=== PATIENT | female | born 1965 | race Caucasian/White ===

== ENCOUNTER 2017-03-03 00:07 | Emergency (ER) | payer OTHER ==
--- NOTE | 2017-03-04 01:33 | ED ORDER SUMMARY ---
..... Patient: SHARRI VILLEDA OrderSheet [facility] VisitID: [id number] [address] [place] [address] 52y, F Registration Date/Time: 03/04/2017 ORDER SHEET Weight: 51.7 kg (stated) Allergies: Penicillin, Sulfa Antibiotics, Compazine GENERAL ORDERS: MEDICATION ORDERS: Ativan IM 1 mg (HIGH ALERT MEDICATION, NOW) (00:24 03/04/2017 Edu Epperson) (0:33 Syeda R.N.) Zofran ODT PO 4 mg (NOW) (00:24 03/04/2017 Edu Epperson) (0:33 Syeda R.N.) IV FLUIDS: ORDER SHEET NOTES: [Electronically signed by Lamont Ewing R.N. (01:43 03/04/2017)] [Electronically signed by Robert Gannon Dr. (02:51 03/04/2017)] [Electronically locked/signed by Lamont Ewing R.N. (:43 03/04/2017)]
--- NOTE | 2017-03-04 01:33 | ED CLINICAL REPORT ---
Clinical Report - Physicians/Mid Levels [facility] [address] [place] [address] 03/04/2017 0:08 Patient: SHARRI VILLEDA Time Seen: 00:17; initial patient contact. Arrived- By private vehicle. Historian- patient. HISTORY OF PRESENT ILLNESS Chief Complaint: ANXIOUS. This started last night. The patient is non-compliant with medication- the last dose was 2 days ago (Ran out of meds 2 days ago, thought she could make it until Saturday when she sees her PCP.). Has been eating or not been depressed. Has not been sleeping. She has had anxiety. No anger, unusual behavior, paranoia, delusions or suicidal thoughts. No self-injury inflicted or hallucinations. The symptoms are described as moderate. No injury is present. Similar symptoms previously: Recent medical care: Not recently seen/assessed. REVIEW OF SYSTEMS No headache, chest pain, palpitations, abdominal pain or vomiting. She has had nausea. All systems otherwise negative, except as recorded above. PAST HISTORY ( Mood Disorder. Migraine Headache. Anxiety Reaction. SURGERIES: Tonsillectomy. Urethral Stretching.). SOCIAL HISTORY Never smoker. Occasional alcohol use. No drug use. ADDITIONAL NOTES The nursing notes have been reviewed. PHYSICAL EXAM Vital Signs: 03/04/2017 01:42 BP: 119/62. HR: 73. RR: 16. O2 saturation: 100%. Temp: 97.8 F. Pain level now: 0/10. Have been reviewed as normal. Appearance: Alert. No acute distress. Appearance is normal. CVS: Normal heart rate and rhythm. Heart sounds normal. Respiratory: No respiratory distress. Breath sounds normal. Psych / Neuro: Oriented X 3. Mood and affect normal. Speech normal. Cognition normal. Thought process and content normal. Insight and judgement normal. PROGRESS AND PROCEDURES Disposition: Discharged home in good and improved condition. Condition: good. CLINICAL IMPRESSION Anxiety reaction. INSTRUCTIONS Your Current Medications: CONTINUE TAKING THE FOLLOWING MEDICATIONS: ClonazePAM Oral : Tablet 0.5 mg, 1 tablet 2x a day. Gabapentin Oral : 1500 mg daily. Nortriptyline HCl Oral : 200 mg at bedtime. Follow-up: Follow up with your doctor today as scheduled. (Electronically signed by Robert Gannon Dr. 03/04/2017 2:51)
--- NOTE | 2017-03-04 01:33 | ED NURSING NOTES ---
Clinical Report - Nurses [facility] [address] [place] [address] 03/04/2017 0:08 Patient: CARIDAD VILLEDA TRIAGE Triage time 00:08. Acuity: LEVEL 4. Chief Complaint: ANXIETY and MEDICATION REFILL (Has been out of anxiety medications since Saturday. Experiencing a lot of anxiety and fear. [facility], treated for migraine, gave prescription for Zofran. She says her N, V still uncontrolled. States she is in the middle of a move which is causing her to be anxious. She is currently staying at a hotel. Last year, her of metastatic brain cancer and best friend earlier this year of [place]; dog recently dx of cancer; eldest cat "at 's door."). Alert. No acute distress. SEPSIS SCREEN: Sepsis Screen: negative. Negative (no infection suspected/documented). --00:15 Lamont Ewing R.N. 00:08 03/04/17. BP: 138/91 (regular adult cuff) taken on the left arm, via an automated monitor, while sitting. HR: 80 (normal rate). RR: 16 (regular, unlabored and normal). O2 saturation: 100% on room air. Temp: 98.1 F (oral). Pain level now: 12/14. --00:15 Lamont Ewing R.N. Weight: 51.7 kg stated. Height/Length: 63 inches Per Patient. BMI: 20.2. --00:09 Lamont Ewing R.N. Medications ClonazePAM Oral (Tablet 0.5 mg) 1 tablet, 2x a day. --00:09 Lamont Ewing R.N. Gabapentin Oral 1500 mg, daily. --00:09 Lamont Ewing R.N. Nortriptyline HCl Oral 200 mg, at bedtime. --00:09 Lamont Ewing R.N. The following entry was struck and corrected by Lamont Ewing R.N., 00:16 (03/04/17) Reason for correction - other(correction). <<STRICKEN ENTRY-- Nortriptyline HCl Oral. --00:09 Lamont Ewing R.N. --END STRIKE>> The following entry was struck and corrected by Lamont Ewing R.N., 00:15 (03/04/17) Reason for correction - other(correction). <<STRICKEN ENTRY-- Gabapentin Oral. --00:09 Lamont Ewing R.N. --END STRIKE>> The following entry was struck and corrected by Lamont Ewing R.N., 00:15 (03/04/17) Reason for correction - other(correction). <<STRICKEN ENTRY-- ClonazePAM Oral. --00:09 Lamont Ewing R.N. --END STRIKE>>. Medication/allergy information source: the patient. --00:15 Lamont Ewing R.N. Allergies Penicillin. --00:08 Lamont Ewing R.N. Sulfa Antibiotics. --00:08 Lamont Ewing R.N. Compazine. --00:09 Lamont Ewing R.N. History Arrived by EMS. Historian: patient. Unaccompanied. Onset. (about 2 - 3 days ago). She has had vomiting (Started Saturday morning.). SOCIAL HX: Never smoker. Occasional alcohol use. (1-3 drinks/week). No drug use. She has not traveled outside the [place] The patient was not exposed to MRSA. No infectious disease exposure. ABUSE ASSESSMENT: Abuse assessment: The patient was asked "Do you feel safe in your home?" and "Has anyone hurt you or threatened to hurt you?". No report of abuse. FALL RISK ASSESSMENT: Fall risk assessment completed. No fall risk identified. NUTRITIONAL RISK ASSESSMENT: The nutritional risk assessment revealed no deficiencies. LEARNING NEEDS ASSESSMENT: The learning needs assessment revealed no barriers. FUNCTIONAL ASSESSMENT: Functional assessment performed: wears glasses- this visual impairment is an ongoing problem. SKIN INTEGRITY ASSESSMENT: Skin integrity risk assessment completed. No skin integrity risk identified. --00:15 Lamont Ewing R.N. PROBLEMS: Mood Disorder. Migraine Headache. Anxiety Reaction. --00:09 Lamont Ewing R.N. ADDITIONAL SURGERIES: Tonsillectomy. Urethral Stretching. --00: Lamont Ewing R.N. Assessment GENERAL / NEURO / PSYCH: Alert. Oriented X 4. Appears anxious. [place] Coma Scale: 15- eyes open spontaneously (4); best verbal response- oriented x 4 (5); best motor response- obeys commands (6). Patient appears calm and cooperative. RESPIRATORY: No respiratory distress. Respirations not labored. SKIN: Skin is warm and dry. --00:15 Lamont Ewing R.N. Interventions ID band on patient. To treatment room. --00:15 Lamont Ewing R.N. PHYSICAL ASSESSMENT To room via stretcher. ( Ran out of meds on Saturday, has appointment tomorrow, 03/04/17 at 9:30 Nelli Mckinley at [facility]. Thought she could get through weekend.). GENERAL / NEURO / PSYCH: Alert. Oriented X 4. Appears in no acute distress. Speech within normal limits. Affect appears normal. Patient appears calm and cooperative. Good eye contact. Patient appears well-nourished and neat and clean. ( Ringing in ears). HEENT: Pupils equal, round and reactive to light. RESPIRATORY: No respiratory distress. Respirations not labored. Breath sounds within normal limits. CVS: Normal sinus rhythm noted. Pulses: right radial 2+ and left radial 2+. Capillary refill less than 2 seconds and seconds. SKIN: Skin intact. Skin is warm and dry. Skin color is within normal limits. --00:17 Lamont Ewing R.N. NURSING PROGRESS NOTES 00:15 03/04/17. The initial plan of care for this patient has been created This plan of care was discussed with the patient. Reassurance given to the patient. Two patient identifiers checked. Call light placed in reach. Side rails up x 1. Bed placed in lowest position. Brakes of bed on. Patient ready for evaluation- ED physician notified. --00:15 Lamont Ewing R.N. 00:33 03/04/2017 Ativan (LORazepam) IM 1 mg given. Given in the left ventral gluteus. Allergies verified, confirmed 5 rights and sedative warning given to the patient. --00:33 Lamont Ewing R.N. 00:33 03/04/2017 Zofran ODT (Ondansetron) PO Oral Disintegrating Tablets 4 mg given. Allergies verified and confirmed 5 rights. --00:33 Lamont Ewing R.N. ( PO challenge initiated, pt given Gatorade.). --00:34 Lamont Ewing R.N. 01:04 03/04/2017 Zofran ODT PO Response: no adverse reaction pain is improving. Symptoms have improved the patient feels better. --01:04 Lamont Ewing R.N. 01:03/04/2017 Ativan IM Response: no adverse reaction symptoms have improved the patient feels better. --01:05 Lamont Ewing R.N. Reassessment after medication administered. She has had no adverse reaction. Overall patient status is improved- she states feels better. GENERAL / NEURO / PSYCH: Alert. Oriented X 4. Patient appears calm and cooperative. Affect appears normal. RESPIRATORY: No respiratory distress. SKIN: Skin is warm and dry. Skin color within normal limits. --01:05 Lamont Ewing R.N. ( Tolerating Gatorade. No N or V.). --01:05 Lamont Ewing R.N. DISPOSITION / DISCHARGE Departure time: 0140. Condition at departure: stable. The goals identified in the patient's plan of care were met. No learning barriers present. Discharge instructions provided and reviewed with the patient. Patient verbalized understanding. Written instructions provided in Slovenian. ( Caridad verbalizes understanding of all d/c instructions including need to f/u with PCP tomorrow as scheduled. She has no questions and voices no concerns at this time.). The patient was discharged by the physician. She was discharged home and unaccompanied at time of discharge. She left the Emergency Department ambulatory and via private vehicle. Patient driving. SHONDA COMA SCORE: [place] Coma Scale: 15- eyes open spontaneously (4); best verbal response- oriented x 4 (5); best motor response- obeys commands (6). --01:43 Lamont Ewing R.N. 01:42 03/04/17. BP: 119/62 (regular adult cuff) taken on the left arm, via an automated monitor, while sitting. HR: 73 (normal rate). RR: 16 (regular, unlabored and normal). O2 saturation: 100% on room air. Temp: 97.8 F (oral). Pain level now: 0/10. --01:43 Lamont Ewing R.N. Locked/Released at 03/04/2017 1:43 by Lamont Ewing R.N.
--- NOTE | 2017-03-04 01:33 | ED CLINICAL REPORT ---
Clinical Report - Physicians/Mid Levels [facility] [address] [place] [address] 03/04/2017 0:08 Patient: SHARRI VILLEDA Time Seen: 00:17; initial patient contact. Arrived- By private vehicle. Historian- patient. HISTORY OF PRESENT ILLNESS Chief Complaint: ANXIOUS. This started last night. The patient is non-compliant with medication- the last dose was 2 days ago (Ran out of meds 2 days ago, thought she could make it until Saturday when she sees her PCP.). Has been eating or not been depressed. Has not been sleeping. She has had anxiety. No anger, unusual behavior, paranoia, delusions or suicidal thoughts. No self-injury inflicted or hallucinations. The symptoms are described as moderate. No injury is present. Similar symptoms previously: Recent medical care: Not recently seen/assessed. REVIEW OF SYSTEMS No headache, chest pain, palpitations, abdominal pain or vomiting. She has had nausea. All systems otherwise negative, except as recorded above. PAST HISTORY ( Mood Disorder. Migraine Headache. Anxiety Reaction. SURGERIES: Tonsillectomy. Urethral Stretching.). SOCIAL HISTORY Never smoker. Occasional alcohol use. No drug use. ADDITIONAL NOTES The nursing notes have been reviewed. PHYSICAL EXAM Vital Signs: 03/04/2017 01:42 BP: 119/62. HR: 73. RR: 16. O2 saturation: 100%. Temp: 97.8 F. Pain level now: 0/10. Have been reviewed as normal. Appearance: Alert. No acute distress. Appearance is normal. CVS: Normal heart rate and rhythm. Heart sounds normal. Respiratory: No respiratory distress. Breath sounds normal. Psych / Neuro: Oriented X 3. Mood and affect normal. Speech normal. Cognition normal. Thought process and content normal. Insight and judgement normal. PROGRESS AND PROCEDURES Disposition: Discharged home in good and improved condition. Condition: good. CLINICAL IMPRESSION Anxiety reaction. INSTRUCTIONS Your Current Medications: CONTINUE TAKING THE FOLLOWING MEDICATIONS: ClonazePAM Oral : Tablet 0.5 mg, 1 tablet 2x a day. Gabapentin Oral : 1500 mg daily. Nortriptyline HCl Oral : 200 mg at bedtime. Follow-up: Follow up with your doctor today as scheduled. (Electronically signed by Robert Gannon Dr. 03/04/2017 2:51)
--- NOTE | 2017-03-04 01:33 | ED ORDER SUMMARY ---
..... Patient: SHARRI VILLEDA OrderSheet [facility] VisitID: [id number] [address] [place] [address] 52y, F Registration Date/Time: 03/04/2017 ORDER SHEET Weight: 51.7 kg (stated) Allergies: Penicillin, Sulfa Antibiotics, Compazine GENERAL ORDERS: MEDICATION ORDERS: Ativan IM 1 mg (HIGH ALERT MEDICATION, NOW) (00:24 03/04/2017 Edu Epperson) (0:33 Syeda R.N.) Zofran ODT PO 4 mg (NOW) (00:24 03/04/2017 Edu Epperson) (0:33 Syeda R.N.) IV FLUIDS: ORDER SHEET NOTES: [Electronically signed by Lamont Ewing R.N. (01:43 03/04/2017)] [Electronically signed by Robert Gannon Dr. (02:51 03/04/2017)] [Electronically locked/signed by Lamont Ewing R.N. (:43 03/04/2017)]
--- NOTE | 2017-03-04 02:51 | ED MAR SUMMARY ---
..... Medication Administration Record [facility] [address] [place] [address] Patient: SHARRI VILLEDA Visit ID: [id number] 52y, F Weight: 51.7 kg Height/Length: 63 in BMI: 20.2 ALLERGIES: Compazine, Sulfa Antibiotics, Penicillin Given 00:33 03/04/2017 Lamont Ewing, R.N. Medication Administered: ATIVAN [IM] (LORAZEPAM), Dose: 1 mg IM. Medication Ordered: Ativan IM 1 mg (HIGH ALERT MEDICATION, NOW). Given 00:33 03/04/2017 Lamont Ewing, R.N. Medication Administered: ZOFRAN ODT [PO] (ONDANSETRON), Dose: 4 mg Oral Disintegrating Tablets PO. Medication Ordered: Zofran ODT PO 4 mg (NOW).
--- NOTE | 2017-03-04 02:51 | ED MAR SUMMARY ---
..... Medication Administration Record [facility] [address] [place] [address] Patient: SHARRI VILLEDA Visit ID: [id number] 52y, F Weight: 51.7 kg Height/Length: 63 in BMI: 20.2 ALLERGIES: Compazine, Sulfa Antibiotics, Penicillin Given 00:33 03/04/2017 Lamont Ewing, R.N. Medication Administered: ATIVAN [IM] (LORAZEPAM), Dose: 1 mg IM. Medication Ordered: Ativan IM 1 mg (HIGH ALERT MEDICATION, NOW). Given 00:33 03/04/2017 Lamont Ewing, R.N. Medication Administered: ZOFRAN ODT [PO] (ONDANSETRON), Dose: 4 mg Oral Disintegrating Tablets PO. Medication Ordered: Zofran ODT PO 4 mg (NOW).
--- NOTE | 2017-03-04 02:51 | ED MED RECONCILIATION SUMMARY ---
Patient: SHARRI VILLEDA Medication Reconciliation Report [facility] VisitID: [id number] [address] [place] [address] 52y, F Registration Date/Time: 03/04/2017 Weight: 51.7 kg Height/Length: 63 in. BMI: 20.2 ALLERGIES: Compazine, Penicillin, Sulfa Antibiotics The patient's Home Medications are listed below: CONTINUE TAKING THE FOLLOWING MEDICATIONS: ClonazePAM Oral (0.5 mg) 1 tablet, 2x a day Gabapentin Oral 1500 mg, daily Nortriptyline HCl Oral 200 mg, at bedtime The source(s) of the original Home Medication information: patient The following Medications were given to the patient in the Emergency Department: Ativan [IM] IM 1 mg, administered: 03/04/2017 12:33:00 AM Zofran ODT [PO] PO 4 mg, administered: 03/04/2017 12:33:00 AM The following Medications were prescribed to the patient: None.
--- NOTE | 2017-03-04 02:51 | ED MED RECONCILIATION SUMMARY ---
Patient: SHARRI VILLEDA Medication Reconciliation Report [facility] VisitID: [id number] [address] [place] [address] 52y, F Registration Date/Time: 03/04/2017 Weight: 51.7 kg Height/Length: 63 in. BMI: 20.2 ALLERGIES: Compazine, Penicillin, Sulfa Antibiotics The patient's Home Medications are listed below: CONTINUE TAKING THE FOLLOWING MEDICATIONS: ClonazePAM Oral (0.5 mg) 1 tablet, 2x a day Gabapentin Oral 1500 mg, daily Nortriptyline HCl Oral 200 mg, at bedtime The source(s) of the original Home Medication information: patient The following Medications were given to the patient in the Emergency Department: Ativan [IM] IM 1 mg, administered: 03/04/2017 12:33:00 AM Zofran ODT [PO] PO 4 mg, administered: 03/04/2017 12:33:00 AM The following Medications were prescribed to the patient: None.
--- NOTE | 2017-03-04 02:51 | ED DISCHARGE INSTRUCTIONS ---
Patient: SHARRI VILLEDA General Instructions [facility] VisitID: [id number] [place] [address] 52y, F Registration Date/Time: 03/04/2017 Anxiety reaction. INSTRUCTIONS Your Current Medications: CONTINUE TAKING THE FOLLOWING MEDICATIONS: ClonazePAM Oral : Tablet 0.5 mg, 1 tablet 2x a day. Gabapentin Oral : 1500 mg daily. Nortriptyline HCl Oral : 200 mg at bedtime. Follow-up: Follow up with your doctor today as scheduled. ADDITIONAL INFORMATION Stress Reaction Anxiety is the feeling we all get when we think something bad might happen. It is a normal response to stress and usually causes only a mild reaction. When anxiety becomes more severe, emotions may interfere with daily life. In some cases, you may not even be aware of what it is youre anxious about! During an anxiety reaction, you may feel like you are helpless, nervous, depressed or irritable. Your body may show signs of anxiety in many ways. You may experience dry mouth, shakiness, dizziness, weakness, trouble breathing, chest pressure, headache, nausea, diarrhea, tiredness, inability to sleep or sexual problems. Home Care: 1) Try to locate the sources of stress in your life. They may not be obvious! These may include: -- Daily hassles of life which pile up (traffic jams, missed appointments, car troubles, etc.) -- Major life changes, both good (new baby, job promotion) and bad (loss of job, loss of loved one) -- Overload: feeling that you have too many responsibilities and can't take care of all of them at once -- Feeling helpless, feeling that your problems are beyond what youre able to solve 2) Notice how your body reacts to stress. Learn to listen to your body signals. This will help you take action before the stress becomes severe. 3) When you can, do something about the source of your stress. (Avoid hassles, limit the amount of change that happens in your life at one time and take a break when you feel overloaded). 4) Unfortunately, many stressful situations cannot be avoided. It is necessary to learn HOW TO MANAGE STRESS better. There are many proven methods that will reduce your anxiety. These include simple things like exercise, good nutrition and adequate rest. Also, there are certain techniques that are helpful: relaxation and breathing exercises, visualization, biofeedback and meditation. For more information about this, consult your doctor or go to a local bookstore and review the many books and tapes available on this subject. Follow Up If you feel that your anxiety is not responding to self-help measures, contact your doctor or make an appointment with a counselor. Get Prompt Medical Attention if any of the following occur: -- Your symptoms get worse -- Chest pain or trouble breathing -- Severe headache not relieved by rest and mild pain reliever -- Rapid or irregular heartbeat, fainting Panic Attack A panic attack is an extreme fear reaction that comes on for no apparent reason. Symptoms may include pounding or racing heartbeat, shortness of breath, dizziness, weakness and sweating. There is usually a fear that something terrible will happen or that you may . The attack may last a few minutes up to a few hours. Between attacks things will seem quite normal. This condition has a psychological cause and can be treated with the help of a therapist or psychiatrist. Medication is often used and can be very helpful for this problem. Home Care: Try to identify the sources of stress in your life. It may not be obvious! These may include: Daily hassles of life which pile up (traffic jams, missed appointments, car troubles, etc.). Major life changes, both good (new baby, job promotion) and bad (loss of job, loss of loved one). Overload: feeling that you have too many responsibilities and can't take care of everything at once. Helplessness: feeling like your problems are too much for you to handle. Notice how your body reacts to stress. Learn to listen to your body signals so that you can take action before the stress becomes severe. When possible, AVOID or REDUCE THE CAUSE OF STRESS. Avoid hassles, limit the amount of change that is happening in your life at one time or take a break when you feel overloaded. Unfortunately, many stressful situations cannot be avoided. Therefore, it is necessary to LEARN HOW TO MANAGE STRESS better. There are many proven methods that work and will reduce your anxiety. These include simple things like exercise, good nutrition and adequate rest. Also, there are certain techniques that are helpful: relaxation and breathing exercises, visualization, biofeedback, meditation or simply taking some time-out to clear your mind. For more information about this, consult your doctor or go to a local bookstore and review the many books and tapes available on this subject. Follow Up with your doctor or a therapist as advised. Get Prompt Medical Attention if any of the following occur: Worsening of your symptoms to the point of feeling [id number] A change in the type of pain: if it feels different, becomes more severe, lasts longer, or begins to spread into your shoulder, arm, neck, jaw or back Shortness of breath or increased pain with breathing Increasing feeling of weakness or dizziness Fainting Cough with dark colored sputum (phlegm) or blood Fever of 100.4F (38C) or higher, or as directed by your healthcare provider Swelling, pain or redness in one leg You have been given the following additional information: Anxiety Reaction Panic Attack (Electronically signed by Robert Gannon Dr. 03/04/2017 2:51)
== END 2017-03-04 01:40 | disposition home or self-care (01) ==
LOC: ED SRH 00:07
DX: F41.1 Generalized anxiety disorder (principal); Z91.14 Patient's other noncompliance with medication regimen